=== PATIENT | female | born 2000 | race Caucasian/White ===

== ENCOUNTER 2023-02-20 02:40 | Inpatient (IN) | payer MEDICAID, OTHER ==
[2023-02-20] MEDS ORDERED: LIDOCAINE 1% INJ 10MG/ML (20 ML MDV) SQ ONE (03:17)
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
[2023-02-20] MEDS ORDERED: DIPH,PERTUS(ACELL)TETVAC-LF 0.5 ML VIAL IM ONE (03:34)
[2023-02-20] MEDS ORDERED: LORazepam 2 MG/ML INJ IM STA (03:44)
[2023-02-20] MEDS ORDERED: BACITRACIN OINT 1 EACH PACKET TOPICAL ONE (04:39)
[2023-02-20] MEDS ORDERED: ACETAMINOPHEN TAB 325 MG TAB PO STA (12:20)
[2023-02-20 12:45] LABS: Amphetamine Screen,Urine Not Detected (NotDetected); Benzodiazepines Screen,Urine Detected (NotDetected); Cocaine Screen,Urine Not Detected (NotDetected); Methadone Screen, Urine Not Detected (NotDetected); Opiate Screen,Urine Not Detected (NotDetected); Phencyclidine Screen,Urine Not Detected (NotDetected); Tricyclic Antidepressant,Urine Not Detected (NotDetected); Urn Cannabinoid Scrn Detected (NotDetected)
[2023-02-20 12:46] LABS: Barbiturate Screen,Urine Not Detected (NotDetected); Oxycodone Screen, Urine Not Detected (NotDetected)
[2023-02-20] MEDS ORDERED: LORazepam 1 MG TAB PO STA (15:59)
[2023-02-20] MEDS ORDERED: MAG HYDROX/AL HYDROX/SIMETH 30 ML CUP PO PRN (18:32)
[2023-02-20] MEDS ORDERED: MAGNESIUM HYDROXIDE 2,400 MG/30 ML CUP PO PRN (18:32)
[2023-02-20] MEDS ORDERED: ACETAMINOPHEN TAB 325 MG TAB PO PRN (18:32)
[2023-02-20] MEDS ORDERED: HALOPERIDOL LACTATE 5 MG/ML 1 ML VIAL IM PRN (19:25)
[2023-02-20] MEDS ORDERED: haloperidoL 5 MG TAB PO PRN (19:25)
[2023-02-20] MEDS ORDERED: LORazepam 2 MG/ML INJ IM PRN (19:25)
[2023-02-20 20:25] LABS: Amorphous Sediment,Urine Moderate /hpf; Appearance,Urine Cloudy (Clear); Bacteria,Urine Occasional /hpf; Bilirubin,Urine Negative (Negative); Blood,Urine Negative (Negative); Color,Urine Yellow; Glucose,Urine (UA) Negative (Negative); Hyaline Casts,Urine 3 /lpf (0-2); Ketones,Urine Trace (Negative); Leukocyte Esterase,Urine Negative (Negative); Mucus,Urine Many /hpf; Nitrite,Urine Negative (Negative); PH, Urine 7.5 (5.0-8.0); Protein,Urine Trace (Negative); RBC,Urine 1 /hpf (0-5); Specific Gravity,Urine 1.027 (1.001-1.035); Squamous Epithelial Cell,Urine <1 /hpf (0-4); Urobilinogen,Urine <2.0 mg/dL (<2.0); WBC,Urine 3 /hpf (0-5)
[2023-02-20] MEDS: LORazepam 1 MG TAB PO PRN (21:24)
[2023-02-21] MEDS: NICOTINE 14MG/24HR PATCH TRANSDERM SCH (10:17)
[2023-02-21 12:06] LABS: Basophils % (A) 0 %; Eosinophils # (A) 0.1 k/uL (0-0.7); Eosinophils % (A) 1 %; HCT 47.2 % (34.0-46.0); HGB 15.7 gm/dL (11.4-16.0); Lymphocytes # (A) 1.6 k/uL (1.0-4.8); Lymphocytes % (A) 12 %; MCH 32.3 pg (25.0-35.0); MCHC 33.3 g/dL (31.0-37.0); MCV 96.9 fL (80.0-100.0); Mean Platelet Volume 8.4; Monocytes # (A) 0.8 k/uL (0-1.0); Monocytes % (A) 6 %; Neutrophils # (A) 10.5 k/uL (1.3-7.7); Neutrophils % (A) 80 %; Platelet Count 348 k/uL (150-450); RBC 4.87 m/uL (3.80-5.40); RDW 12.9 % (11.5-15.5); WBC 13.2 k/uL (3.8-10.6)
[2023-02-21] MEDS ORDERED: MELATONIN 5 MG TABLET PO PRN (12:14)
[2023-02-21 12:24] LABS: ALT 24 U/L (4-34); AST 32 U/L (14-36); African American GFR (CKD) >90 (>60 ml/min/1.73 sqM); Alkaline Phosphatase 72 U/L (38-126); Anion Gap 12 mmol/L; Blood Urea Nitrogen 12 mg/dL (7-17); Calcium 9.7 mg/dL (8.4-10.2); Carbon Dioxide 20 mmol/L (22-30); Chloride 105 mmol/L (98-107); Glucose 78 mg/dL (74-99); Non-African American GFR(CKD) >90 (>60 ml/min/1.73 sqM); Potassium 3.8 mmol/L (3.5-5.1); Sodium 137 mmol/L (137-145); Total Bilirubin 1.2 mg/dL (0.2-1.3); Total Protein 8.5 g/dL (6.3-8.2)
[2023-02-21] MEDS: SERTRALINE 25 MG TAB PO SCH (12:37)
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
[2023-02-21] MEDS: BACITRACIN/POLYMYX 500-10,000 UNIT/GM OINT 14 GM TUBE TOPICAL SCH ×2 (15:09→21:17)
[2023-02-21] MEDS: LORazepam 1 MG TAB PO PRN (23:01)
[2023-02-22] MEDS: BACITRACIN/POLYMYX 500-10,000 UNIT/GM OINT 14 GM TUBE TOPICAL SCH ×2 (08:54→20:55)
[2023-02-22] MEDS: NICOTINE 14MG/24HR PATCH TRANSDERM SCH (08:54)
[2023-02-22] MEDS: SERTRALINE 25 MG TAB PO SCH (08:54)
--- NOTE | 2023-02-22 11:32 | P.PN ---
Progress Note - Text Progress Note Date: 02/22/23 Interval history: Patient was seen wandering the hallways interacting with another patient [place]. she was agreeable to be seen by screen writer in the office today. she states that she is going to groups and trying to work on her coping skills. she wrote down several and shared them with screen writer. She claims that she is doing a bit better with regards to her anxiety and depression. she states that she is trying to rely on other females on the unit that are of similar age and similar issues. She states that her appetite is mildly improving. She appears to be more cooperative today during the interaction. She claims that she had difficulty sleeping last night he needs to take Ativan and the melatonin due to a disruption on the unit. She is denying any suicidal or homicidal ideations intent or plan at this time. Denying any auditory or visual hallucinations. Any side effects. Mental status examination: General Appearance: Patient appears to be tall, tattoos on her neck, wearing glasses, stated age is alert, directable, and attempts to cooperate. Patient appears to have fair hygiene and grooming. Behavior: Patient is seated without any agitated behavior. Attempts to cooperate. Speech: Patient's speech is fluent and nonpressured. [place], improving Mood/Affect: Patient reports their mood is improving mildly, affect is congruent improving Suicidality/Homicidality: Patient denies having any homicidal ideation intent or plan. Denies any suicidal ideations intent or plan Perceptions: Patient denies any visual hallucinations and denies any auditory hallucinations Though content/process: There is no evidence of any delusional thought content and thought process is linear and goal-directed. Memory and concentration: AOX3, grossly intact for the purposes of this session Judgment and insight: improving mildly IMPRESSIONS: Adjustment disorder with emotional misconduct History of depression and anxiety Alcohol abuse Cannabis use disorder PLAN: -Patient is admitted under voluntary status to MHU for stabilization of psychiatric symptoms and safety. Patient has signed adult voluntary form and medication consent and is placed in patient's chart. -Medications : increase Zoloft 50 mg daily for mood/anxiety, melatonin daily qhs for sleep -Ativan and Haldol PRN for agitation/aggression -CIWA protocol with Ativan PRN for ETOH withdrawal -NRT -not needed as patient does not smoke -SW on board for discharge planning. Encourage patient to participate in groups to work on coping skills. she is refusing anti cravings meds for etoh. likely discharge back home. she is refusing rehab.
[2023-02-22 17:45] VITALS: RESP 16
[2023-02-22] MEDS: MELATONIN 3 MG TABLET PO SCH (20:55)
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
[2023-02-23 07:01] VITALS: TEMP 98.3
[2023-02-23] MEDS: BACITRACIN/POLYMYX 500-10,000 UNIT/GM OINT 14 GM TUBE TOPICAL SCH ×2 (08:38→19:34)
[2023-02-23] MEDS: NICOTINE 14MG/24HR PATCH TRANSDERM SCH (08:38)
[2023-02-23] MEDS: SERTRALINE 50 MG TAB PO SCH (08:39)
--- NOTE | 2023-02-23 10:17 | P.PN ---
Progress Note - Text Progress Note Date: 02/23/23 Interval history: Patient was seen wandering the hallways she was agreeable to be seen by singer songwriter in the office today. she states that she is going to groups and trying to work on her coping skills. She claims that she is feeling more "positive" and states that she is valuing her family more and more. States that her mood and anxiety even improving on the medications at this time. She states that she is able to sleep better last night with the melatonin. She appears to be more cooperative today during the interaction. She is denying any suicidal or homicidal ideations intent or plan at this time. Denying any auditory or visual hallucinations. Any side effects. Mental status examination: General Appearance: Patient appears to be tall, tattoos on her neck, wearing glasses, stated age is alert, directable, and attempts to cooperate. Patient appears to have fair hygiene and grooming. Behavior: Patient is seated without any agitated behavior. Her cooperative today. Speech: Patient's speech is fluent and nonpressured, improving Mood/Affect: Patient reports their mood is improving mildly, affect is congruent improving Suicidality/Homicidality: Patient denies having any homicidal ideation intent or plan. Denies any suicidal ideations intent or plan Perceptions: Patient denies any visual hallucinations and denies any auditory hallucinations Though content/process: There is no evidence of any delusional thought content and thought process is linear and goal-directed. Memory and concentration: AOX3, grossly intact for the purposes of this session Judgment and insight: improving mildly IMPRESSIONS: Adjustment disorder with emotional misconduct History of depression and anxiety Alcohol abuse Cannabis use disorder PLAN: -Patient is admitted under voluntary status to [facility] for stabilization of psychiatric symptoms and safety. Patient has signed adult voluntary form and medication consent and is placed in patient's chart. -Medications : Zoloft 50 mg daily for mood/anxiety, melatonin daily qhs for sleep -Ativan and Haldol PRN for agitation/aggression -CIWA protocol with Ativan PRN for ETOH withdrawal -NRT -not needed as patient does not smoke -SW on board for discharge planning. Encourage patient to participate in groups to work on coping skills. she is refusing anti cravings meds for etoh. likely discharge back home tomorrow, she is refusing rehab.
[2023-02-23] MEDS: MELATONIN 3 MG TABLET PO SCH (22:24)
[2023-02-24] MEDS: NICOTINE 14MG/24HR PATCH TRANSDERM SCH (07:46)
[2023-02-24] MEDS: SERTRALINE 50 MG TAB PO SCH (08:48)
[2023-02-24] MEDS: BACITRACIN/POLYMYX 500-10,000 UNIT/GM OINT 14 GM TUBE TOPICAL SCH (09:19)
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
[2023-02-24 15:55] VITALS: BP 109/67; PULSE 84
== END 2023-02-24 12:39 | disposition home or self-care (01) | DRG 755 ==
LOC: EC 02:40 → 3MHU 17:43
PROVIDERS: ADMIT Psychiatry & Neurology Psychiatry; ATTEND Psychiatry & Neurology Psychiatry
DX: F43.29 Adjustment disorder with other symptoms (principal); F10.139 Alcohol abuse with withdrawal, unspecified; S61.511A Laceration without foreign body of right wrist, initial encounter; S61.512A Laceration without foreign body of left wrist, initial encounter; Y04.0XXA Assault by unarmed brawl or fight, initial encounter; Z55.5 Less than a high school diploma; Z79.899 Other long term (current) drug therapy; Z71.41 Alcohol abuse counseling and surveillance of alcoholic; Z71.89 Other specified counseling; F41.9 Anxiety disorder, unspecified; Z28.310 Unvaccinated for COVID-19; Z28.21 Immunization not carried out because of patient refusal
CPT/HCPCS: 12002; 80053; 80306; 81001; 81025; 82075; 83036; 84443; 85025; 87635; 90471; 90715; 96372; 99285